=== PATIENT | female | born 1955 | race African-American/Black ===

== ENCOUNTER 2024-11-02 10:09 | Emergency (ER) | payer OTHER ==
[2024-11-02 10:16] VITALS: BP 171/62; PULSE 94; RESP 16; TEMP 97.8; BMI 22.1
[2024-11-02] MEDS ORDERED: KETOROLAC TROMETHAMINE 30 MG/1 ML VIAL ONE (12:06)
[2024-11-02] MEDS: KETOROLAC TROMETHAMINE 30 MG/1 ML VIAL IM ONE (12:20)
== END 2024-11-02 13:12 | disposition home or self-care (01) ==
LOC: JERFT 10:09
PROC: 3E0233Z Introduction of Anti-inflammatory into Muscle, Percutaneous Approach (ICD-10-PCS; principal; 2024-11-02)
DX: S93.401A Sprain of unspecified ligament of right ankle, initial encounter (principal); W18.30XA Fall on same level, unspecified, initial encounter
CPT/HCPCS: 73610-TC-RT-FY; 73630-TC-RT-FY; 96372; 99284-25